=== PATIENT | male | born 1985 | race African-American/Black ===

== ENCOUNTER 2018-04-30 11:58 | Emergency (ER) | payer OTHER ==
[~2018-04-30] VITALS: Ht 188 cm; Wt 83.9 kg
--- NOTE | 2018-04-30 12:17 | NUR ---
BIBRA60, FOR SEIZURE, FOUND HIM AT THE FRONT OF [employer], -TRAUMA. PT APPEARS SLEEPY. AOX3, VSS, RR EVEN AND UNLABORED ON RA. SKIN INTACT, NO ACUTE DISTRESS NOTED. SEIZURE PRECAUTIONS IMPLEMENTED. ON MONITOR, READY FOR EVAL, WILL CONT TO MONITOR.
[2018-04-30 12:23] LABS: BASOPHILS % (AUTO) 0.7 % (0.0-2.0); EOSINOPHILS % (AUTO) 0.2 % (0.0-6.0); HEMATOCRIT 45 % (39-51); LYMPHOCYTES # (AUTO) 1.4 /CMM (0.8-4.8); LYMPHOCYTES % (AUTO) 24.5 % (20.0-44.0); MEAN CORPUSCULAR HGB CONC 34 g/dl (31.0-36.0); MEAN CORPUSCULAR VOLUME 97 fL (80-96); MONOCYTES # (AUTO) 0.6 /CMM (0.1-1.30); NEUTROPHILS # (AUTO) 3.6 /CMM (1.8-8.9); NEUTROPHILS % (AUTO) 63.6 % (43.0-81.0); PLATELET COUNT (AUTO) 138 /CMM (150-450); RED BLOOD CELL COUNT(AUTO) 4.62 MIL/uL (4.5-6.0); WHITE BLOOD COUNT (AUTO) 5.7 K/uL (4.3-11.0)
--- NOTE | 2018-04-30 12:30 | NUR ---
CALLED PHARMACY TO REQUEST IV MEDICATION
[2018-04-30 12:39] LABS: CALCIUM, SERUM 9.3 mg/dL (8.5-10.1); CREATININE 0.8 mg/dL (0.6-1.3); POTASSIUM 3.6 mmol/L (3.5-5.1)
[2018-04-30] MEDS: IV NS 0.9% 1,000 ML BAG IV ONE (12:40)
[2018-04-30] MEDS: LEVETIRACETAM (500MG) 1,000 MG in IV NS 0.9% 100 ML IV SCH (12:55)
--- NOTE | 2018-04-30 13:15 | NUR ---
UPON CHECKING ON PT, FOUND WITH ARMS AND LEGS FLAILING. SAT UP I ATTEMPTED TO CALM HIM. APPEARED CONFUSED/DISORIENTED. STOOD UP AND BEGAN TO DRAG MONITOR AND IV POLE AWAY FROM BED. PROCEEDED TO DIVE DOWN NEXT TO OTHER PT'S BED AND LAY ON THE FLOOR. IV LINE PULLED OUT, PT HAD NO VERBAL RESPONSE. STAFF ASSISTED PT BACK TO BED. CELY WATERS MADE AWARE. 2-PT RESTRAINTS PLACED WITH CMS INTACT FOR PT SAFETY. NEW IV LINE WILL BE PLACED AND WILL CONT TO MONITOR. Addendum: 05/01/18 at 1127 by CJUWONO VERBAL ORDER FOR RESTRAINTS GIVEN BY CELY WATERS
--- NOTE | 2018-04-30 14:38 | NUR ---
CHALO received a call from Neetu in ED requesting for SW to assess pt. per RN Janeth's request. CHALO and RIGOBERTO Fowler met with pt. bedside. SW is unable to assess pt. due to not being alert or oriented. RIGOBERTO Fowler tried to wake pt. up several times. According to RIGOBERTO Fowler pt. was talking with her a few minutes ago. SW to reassess pt. when he is more alert and oriented. ED CRN Radha also accompanied CHALO to see the pt.
--- NOTE | 2018-04-30 14:45 | NUR ---
CELY WATERS AT BEDSIDE. WHEN ASKED ABOUT LOCATION, PT STATES HE IS AT HOME. DIFFICULTY AROUSING. WAITING FOR ORDERS. WILL CONT TO MONITOR.
--- NOTE | 2018-04-30 15:37 | NUR ---
PT APPEARS MORE ALERT, HOWEVER, SOME ANSWERS ARE STILL INAPPROPRIATE. HE IS ABLE TO WALK TO THE BATHROOM. PA AWARE Addendum: 05/01/18 at 1124 by PHILIPP RESTRAINTS REMOVED
[2018-04-30 16:24] LABS: APPEARANCE,URINE Clear (CLEAR); BILIRUBIN,URINE SMALL (NEGATIVE); BLOOD, URINE Negative Ery/uL (NEGATIVE); COLOR,URINE Yellow (YELLOW); KETONES,URINE 40 (NEGATIVE); LEUKOCYTE ESTERASE ,URINE Negative (NEGATIVE); NITRITE, URINE Negative (NEGATIVE); PROTEIN,URINE Trace mg/dl (NEGATIVE); UGLUCOSE Negative (NEGATIVE)
[2018-04-30 16:30] LABS: BACTERIA,URINE None seen /HPF (None Seen); RBC,URINE 0-2 /HPF (0-2); SQUAMOUS EPITHELIAL CELL,UR Few /HPF (None Seen); WBC,URINE 0-2 /HPF (0-3)
--- NOTE | 2018-04-30 16:37 | NUR ---
PT ALERT AND ORIENTED, READY FOR DISCHARGE. CELY TARIQ
[2018-04-30 16:53] LABS: ACETAMINOPHEN < 2 ug/ml (10-30); ALCOHOL, BLOOD < 3 mg/dL (0-0); SALICYLATE 2.9 mg/dL (2.8-20.0)
--- NOTE | 2018-04-30 17:15 | NUR ---
IV removed. Catheter intact and site benign. Pressure and 4x4 applied to site. No bleeding noted. Patient given written and verbal discharge instructions. Patient verbalizes understanding of instructions. Patient is ambulatory with steady gait. Refuses offer of fdc placement. Patient given list of available shelters in surrounding area.
[2018-04-30 17:40] VITALS: BP 141/82
[2018-05-06] MEDS ORDERED: ATOR10TA PO (12:44)
[2018-05-06] MEDS ORDERED: METF-440 PO (12:44)
== END 2018-04-30 17:15 | disposition home or self-care (01) ==
LOC: EDBD 12:01 → ER 12:01
DX: R56.9 Unspecified convulsions (principal)
CPT/HCPCS: 36415; 70450; 80048; 80305; 80307; 80329; 81001; 85025; 93005; 96365; 99284; G0480; J1953; J7030 ×2; 81000-TC

== ENCOUNTER 2018-05-04 06:19 | Inpatient (IN) | payer OTHER ==
[~2018-05-04] VITALS: Ht 188 cm; Wt 107.0 kg
--- NOTE | 2018-05-04 06:30 | NUR ---
TO BED 3 BIB PARAMEDICS C/O POSSIBLE SEIZURE PER EMS REPORT, PT CONFUSED. PT CONFUSED, NO ACUTE DISTRESS NOTED, RESP EVEN AND UNLABORED. PLACE PT ON CARDIAC MONITORING, CONTINUOUS POX, O2@2L/NC. ER MD AT BEDSIDE TO EVAL PT WITH ORDERS RECEIVED. WILL CARRY OUT ORDERS.
[2018-05-04] MEDS ORDERED: LORAZEPAM INJ 2 MG/ML VIAL ONE ×2 (06:41→07:08)
[2018-05-04] MEDS ORDERED: VALPROATE 500 MG in IV NS 0.9% 100 ML IV STA (06:43)
--- NOTE | 2018-05-04 06:43 | NUR ---
WITNESSED PT HAVING A SEIZURE EPISODE, ER MD MADE AWARE WITH ORDERS RECEIVED.
--- NOTE | 2018-05-04 06:45 | NUR ---
PT MEDICATED BY RN PER ER MD ORDER.
[2018-05-04] MEDS ORDERED: LORAZEPAM INJ 2 MG/ML VIAL IV ONE ×2 (07:00→07:30)
[2018-05-04] MEDS ORDERED: IV NS 0.9% 1,000 ML BAG IV ONE (07:00)
--- NOTE | 2018-05-04 07:06 | NUR ---
NOTED PT HAVING ANOTHER SEIZURE. ER MD MADE AWARE WITH ORDERS RECIEVED. RN TO MEDICATE PT.
[2018-05-04 07:18] LABS: BASOPHILS % (AUTO) 0.2 % (0.0-2.0); EOSINOPHILS % (AUTO) 0.1 % (0.0-6.0); HEMATOCRIT 45 % (39-51); HEMOGLOBIN 15.1 g/dL (13.5-17.5); LYMPHOCYTES # (AUTO) 1.4 /CMM (0.8-4.8); LYMPHOCYTES % (AUTO) 12.5 % (20.0-44.0); MEAN CORPUSCULAR HGB CONC 33 g/dl (31.0-36.0); MEAN CORPUSCULAR VOLUME 97 fL (80-96); MONOCYTES # (AUTO) 1.4 /CMM (0.1-1.30); MONOCYTES % (AUTO) 12.7 % (2.0-12.0); NEUTROPHILS # (AUTO) 8.2 /CMM (1.8-8.9); NEUTROPHILS % (AUTO) 74.5 % (43.0-81.0); PLATELET COUNT (AUTO) 157 /CMM (150-450); RED BLOOD CELL COUNT(AUTO) 4.63 MIL/uL (4.5-6.0)
[2018-05-04 07:33] LABS: CALCIUM, SERUM 9.4 mg/dL (8.5-10.1); CARBON DIOXIDE 16 mmol/L (21-32); CHLORIDE 102 mmol/L (98-107); CREATININE 1.1 mg/dL (0.6-1.3); GLUCOSE 165 mg/dL (74-106); POTASSIUM 3.4 mmol/L (3.5-5.1); SODIUM SERUM 139 mmol/L (136-145); UREA NITROGEN, BLOOD 14 mg/dL (7-18); VALPROIC ACID 5 ug/mL (50-100)
[2018-05-04 07:35] LABS: ALCOHOL, BLOOD < 3 mg/dL (0-0)
--- NOTE | 2018-05-04 08:52 | NUR ---
REPORT GIVEN TO CRISTÓBAL DURON RN. AWAITING TRANSFER TO FLOOR.
--- NOTE | 2018-05-04 10:10 | NUR ---
received pt. from er.hooked up to tele-rhythm sinus rate of 96.very groggy to lethargic.arousable,then drifts off to sleep.side rails padded.initially hooked up to cont. pulse ox due to sleepiness-level96% t0 100%.o2 on at 5l via mask as pt. breathing thru mouth.pt. continually removing o2.
--- NOTE | 2018-05-04 10:11 | NUR ---
STABLE FOR TRANSFER TO FLOOR
[2018-05-04] MEDS ORDERED: HYDROCODONE/APAP 5/325MG 1 EACH TABLET PO PRN (11:30)
[2018-05-04] MEDS ORDERED: ZOLPIDEM TARTRATE 5 MG TABLET PO PRN (11:30)
[2018-05-04] MEDS ORDERED: Z GUARD REMEDY 2 OZ OINT TP PRN (11:30)
[2018-05-04] MEDS ORDERED: ACETAMINOPHEN 325 MG TABLET PO PRN (11:30)
[2018-05-04] MEDS ORDERED: MAGNESIUM HYDROXIDE 30 ML UDC PO PRN (11:30)
[2018-05-04] MEDS ORDERED: ONDANSETRON HCL/PF 4 MG/2 ML VIAL IVP PRN (11:30)
[2018-05-04] MEDS ORDERED: MAG HYDROX/AL HYDROX/SIMETH 30 ML UDC PO PRN (11:30)
[2018-05-04] MEDS ORDERED: LORA-259 PO (11:37)
[2018-05-04] MEDS ORDERED: DIVA500T2 PO (11:37)
[2018-05-04 11:41] LABS: MAGNESIUM 1.8 mg/dL (1.8-2.4); PHOSPHORUS 3.6 mg/dL (2.5-4.9)
[2018-05-04 12:00] VITALS: BP 133/94
--- NOTE | 2018-05-04 12:00 | NUR ---
resp. tx in and changed mask to 3l.
[2018-05-04] MEDS: IV NS 0.9% 1,000 ML IV PRN (12:15)
[2018-05-04] MEDS: LEVETIRACETAM (500MG) 1,000 MG in IV NS 0.9% 100 ML IV SCH ×2 (12:16→23:11)
[2018-05-04] MEDS: POTASSIUM CL. PREMIX PERIPHER. 50 ML IV SCH ×4 (13:11→16:53)
--- NOTE | 2018-05-04 14:30 | NUR ---
from time to time pt. still removing mask,so nasal cannula applied at 3l.pox good.appears comfortable.no distress.
[2018-05-04 16:00] VITALS: BP 118/72
--- NOTE | 2018-05-04 18:00 | NUR ---
kcl replacement done.
[2018-05-04] MEDS: VALPROIC ACID 250 MG/5 ML UDC PO SCH (18:19)
--- NOTE | 2018-05-04 18:30 | NUR ---
asleep till this time so street clothes just removed and skin check done.rn to endorse photo needs to ceci. rn.just up to void.
--- NOTE | 2018-05-04 19:30 | NUR ---
MELT HOUSE SUPERVISOR OPENING NOTES Received patient asleep, easily aroused, responsive to stimuli but unable to sustain alertness. Only able to respond by telling his name. With O2 inhalation via NC, saturating 98%. On tele monitor with sinus tachycardia noted. No other discomfort noted at this time. Reassessed skin, photos taken and documented. Place on ICD per hospital policy. Kept bed low, locked, padded siderails up with call light within easy. Will continue to monitor accordingly.
[2018-05-04 20:00] VITALS: BP 124/67
[2018-05-05] VITALS: BP 138/75
[2018-05-05] MEDS: LORAZEPAM INJ 2 MG/ML VIAL IV PRN ×4 (03:22→19:58)
--- NOTE | 2018-05-05 03:22 | NUR ---
DISPUTE COORDINATOR NOTES Patient noted awaken, shouted, kicking off the bed, looked frightened. Reassured patient's safety, able to calm the patient. Assessed for LOC, all answered noted with relevance. Tachycardia noted, BP 139/78, SpO2 @ 96% with O2 inhalation via NC. Offered snacks and drinks. Patient ate with good appetite. Offered urinal at bedside. Kept patient calm, environment cool. Ensured siderails padded. Administered Lorazepam as ordered. Will continue to monitor accordingly.
[2018-05-05 04:00] VITALS: BP_SYST 116; BP_SYST 136; BP_DIAS 78
[2018-05-05] MEDS: IV NS 0.9% 1,000 ML IV PRN (06:03)
[2018-05-05 06:17] LABS: BASOPHILS % (AUTO) 0.7 % (0.0-2.0); EOSINOPHILS % (AUTO) 0.5 % (0.0-6.0); HEMATOCRIT 42 % (39-51); HEMOGLOBIN 14.2 g/dL (13.5-17.5); LYMPHOCYTES # (AUTO) 1.8 /CMM (0.8-4.8); LYMPHOCYTES % (AUTO) 31.6 % (20.0-44.0); MEAN CORPUSCULAR HGB CONC 34 g/dl (31.0-36.0); MEAN CORPUSCULAR VOLUME 95 fL (80-96); MONOCYTES # (AUTO) 0.8 /CMM (0.1-1.30); MONOCYTES % (AUTO) 13.1 % (2.0-12.0); NEUTROPHILS # (AUTO) 3.2 /CMM (1.8-8.9); NEUTROPHILS % (AUTO) 54.1 % (43.0-81.0); PLATELET COUNT (AUTO) 155 /CMM (150-450); RED BLOOD CELL COUNT(AUTO) 4.43 MIL/uL (4.5-6.0); WHITE BLOOD COUNT (AUTO) 5.9 K/uL (4.3-11.0)
--- NOTE | 2018-05-05 06:27 | NUR ---
GRANT ADMINISTRATOR CLOSING NOTES Patient asleep, easily awaken. Still with O2 inhalation via NC @ 2LPM, saturating 98%. On continuous pulse ox monitor as ordered, with episodes of dropping SpO2 while asleep. With IVF running as ordered. No discomfort noted at this time. All nursing needs attended. All due meds given as ordered. Kept on bed clean, dry and comfortable, call light at bedside. Used urinal with 400cc tea colored urine noted. Endorsed to the next shift.
[2018-05-05 06:42] LABS: CALCIUM, SERUM 8.6 mg/dL (8.5-10.1); CREATININE 0.8 mg/dL (0.6-1.3); MAGNESIUM 1.8 mg/dL (1.8-2.4); PHOSPHORUS 3.2 mg/dL (2.5-4.9); POTASSIUM 3.4 mmol/L (3.5-5.1)
--- NOTE | 2018-05-05 07:15 | NUR ---
Bedside report recieved. patient seen in bed with eyes closed. arousable to touch. patient appears sleepy but is responding appropriately to questions. cont pox on, patient on 2lnc satuaration are at 94%. reviewed poc questions concerns addresseed . bed down and locked sr x2 patient verbalized understanding to call for assistance if needed.
[2018-05-05 08:00] VITALS: BP 134/75
[2018-05-05] MEDS: PANTOPRAZOLE 40 MG TABLET.DR PO SCH (09:16)
[2018-05-05] MEDS: VALPROIC ACID 250 MG/5 ML UDC PO SCH (09:16)
[2018-05-05] MEDS ORDERED: POTASSIUM CHLORIDE 20 MEQ TAB.PRT.SR PO SCH (10:00)
[2018-05-05] MEDS ORDERED: DEXTROSE 50%-WATER 50 ML DISP.SYRIN IV PRN (10:30)
[2018-05-05] MEDS: BLOOD SUGAR DIAGNOSTIC 1 EACH STRIP IN SCH ×3 (12:14→21:06)
[2018-05-05] MEDS: LEVETIRACETAM (500MG) 1,000 MG in IV NS 0.9% 100 ML IV SCH (12:22)
[2018-05-05] MEDS: INSULIN REGULAR, HUMAN 100 UNIT/ML 3 ML VIAL SQ PRN (12:22)
--- NOTE | 2018-05-05 13:30 | NUR ---
MS RN NOTES PATIENT HAD A WITNESSED SEIZURE BY ANOTHER RN. PATIENT NOTED WITH JERKING MOVEMENTS FROM ONE SIDE OF BED TO ANOTHER. PATIENT MOVED TO RIGHT SIDE OF BED AND FELL OVER THE SIDE RAILS TO FLOOR. ALL SIDE RAILS WERE UP AND PATTED. BED ALARM WAS ON. SEIZURE DURATION WAS 15 SECONDS. ATIVAN 2 MG ADMINISTERED ORDERED. PATIENT WAS ALERT, ORIENTED X2 POST SEIZURE. DENIES ANY PAIN. ABLE TO MOVE ALL EXTREMIS. PATIENT STUD UP AND GOT INTO BED. BILLIE CHUNG NOTIFIED. NO NEW ORDERS. STATES TO CONTINUE MONITORING. PATIENT MOVED TO ANOTHER ROOM NEXT TO NURSING STATIONS. WILL CONTINUE TO MONITOR CLOSELY. Addendum: 05/05/18 at 1431 by MARIA L FIGUEROA RN VS WNL BP:121/84 PULSE: 102, O2 SATURATION 95% RESPIRATION 18. BS CHECKED 104MG/DL.
--- NOTE | 2018-05-05 15:40 | NUR ---
MS RN NOTES PATIENT WAS FOUND IN BED KICKING HIS LEGS AND SWINGING HIS ARMS UNCONTROLLABLY, THIS MOVEMENTS LASTED 15 SECONDS. PATIENT WAS UNABLE TO RESPOND. AFTER PATIENT WAS ALERT, ORIENTED X3. DOES NOT RECALL THE INCIDENT. NEURO CHECK PERFORMED. PATIENTS EYE RESPONSIVE TO LIGHT. PATIENT A ABLE TO MOVE BILATERAL UPPER AND LOWER EXTREMITAS. STRENGTH EQUAL IN ALL EXTREMITAS. NEURO CHECKED PERFORMED, NORMAL RESPONSE. BILLIE CHUNG PAGED WAITING FOR RESPONSE ATIVAN ADMINISTERED ORDER. SITTER PLACED AT BEDSIDE FOR CLOSER MONITORING. WILL CONTINUE TO MONITOR.
[2018-05-05 16:00] VITALS: BP 139/82
--- NOTE | 2018-05-05 16:05 | NUR ---
MS RN NOTES CALL BACK RECEIVED FROM BILLIE ALVARADO CONTROL ROOM TECHNICIAN ORDERS TO CONTINUE TO MONITOR.
[2018-05-05] MEDS: METFORMIN 500 MG TABLET PO SCH (16:55)
[2018-05-05] MEDS: DIVALPROEX SODIUM 500 MG TABLET.DR PO SCH (16:55)
--- NOTE | 2018-05-05 19:15 | NUR ---
BEDSIDE REPORT GIVEN TO ADA FRANKLIN. PATIENT SEEN IN BED WITH EYES CLOSED. IV INFUSING AT 75 ML PER HOUR NO S/S OF INFILTRATION. BED DOWN AND LOCKED SR X3 SITTER AT THE BEDSIDE. CALL LIGHT WITHIN REACH.
--- NOTE | 2018-05-05 19:16 | NUR ---
MS RN OPENING NOTES Received patient asleep on left lateral position on bed with continuous pulse ox with SpO2 @ 95% on RA, no SOB/respiratory distress noted. With padded siderails x4 up. With 1-on-1 sitter at bedside. Kept bed low and locked, call light within easy reach. Will continue to monitor accordingly.
--- NOTE | 2018-05-05 20:00 | NUR ---
MS RN NOTES Patient noted agitated, kicking off the bed. Patient is alert after the involuntary jerking. Patient claimed he is not aware of what he had done. Patient denied discomfort at this time. Ativan 1gm administered as ordered. Patient noted calm. Offered snacks, patient eating well. Will continue to monitor accordingly.
[2018-05-05] MEDS: LEVETIRACETAM (250 MG) 250 MG TABLET PO SCH (20:48)
[2018-05-05] MEDS ORDERED: ATORVASTATIN 10 MG TABLET PO SCH (22:00)
[2018-05-06] MEDS: IV NS 0.9% 1,000 ML IV PRN (02:46)
--- NOTE | 2018-05-06 04:03 | NUR ---
MS RN NOTES IV site LAC noted dislodged, thus D/C and reinserted to R hand G#22. Able to secure line with 1 attempt, blood return noted. Resumed IVF as ordered. Patient claimed no discomfort on LAC, no redness noted. Will continue to monitor accordingly.
[2018-05-06] MEDS: LORAZEPAM INJ 2 MG/ML VIAL IV PRN (04:59)
--- NOTE | 2018-05-06 05:10 | NUR ---
MS RN NOTES Patient noted excessive movement including kicking that lasted less than a minute. Patient remained on bed at all times. Patient verbalized similar event had happened to him at [place] that brought him to the hospital. Patient responded with relevant answers. BS checked 148. Administered Lorazepam 1mg as ordered. Replaced damaged compression sleeves. Will continue to monitor accordingly.
[2018-05-06] MEDS: INSULIN REGULAR, HUMAN 100 UNIT/ML 3 ML VIAL SQ PRN ×2 (06:54→11:56)
[2018-05-06 07:05] LABS: BASOPHILS % (AUTO) 0.7 % (0.0-2.0); EOSINOPHILS % (AUTO) 0.9 % (0.0-6.0); HEMATOCRIT 43 % (39-51); HEMOGLOBIN 14.5 g/dL (13.5-17.5); LYMPHOCYTES # (AUTO) 1.7 /CMM (0.8-4.8); LYMPHOCYTES % (AUTO) 39.8 % (20.0-44.0); MEAN CORPUSCULAR HGB CONC 34 g/dl (31.0-36.0); MEAN CORPUSCULAR VOLUME 95 fL (80-96); MONOCYTES # (AUTO) 0.6 /CMM (0.1-1.30); MONOCYTES % (AUTO) 12.8 % (2.0-12.0); NEUTROPHILS % (AUTO) 45.8 % (43.0-81.0); PLATELET COUNT (AUTO) 148 /CMM (150-450); RED BLOOD CELL COUNT(AUTO) 4.48 MIL/uL (4.5-6.0); WHITE BLOOD COUNT (AUTO) 4.3 K/uL (4.3-11.0)
--- NOTE | 2018-05-06 07:10 | NUR ---
MS RN CLOSING NOTES Patient noted asleep at this time. BS 132 - 2units Insulin given as ordered. On O2 inhalation via NC @ 2LPM, saturating well, no distress noted within the shift. All due meds given as ordered. All nursing needs attended. Still with 1-on-1 sitter at bedside. Kept bed low and locked, siderails padded and up. Endorsed to the next shift.
[2018-05-06 07:22] LABS: CALCIUM, SERUM 8.7 mg/dL (8.5-10.1); CREATININE 0.7 mg/dL (0.6-1.3); MAGNESIUM 1.7 mg/dL (1.8-2.4); POTASSIUM 3.2 mmol/L (3.5-5.1)
[2018-05-06] MEDS: BLOOD SUGAR DIAGNOSTIC 1 EACH STRIP IN SCH ×2 (07:48→11:51)
[2018-05-06 08:00] VITALS: BP 138/90
--- NOTE | 2018-05-06 08:00 | NUR ---
M/S CLINICAL BIOCHEMICAL GENETICIST: INITIAL ASSESSMENT RECEIVED PT IN BED AWAKE, A/OX4. ON SEIZURE PRECAUTION. NOTED WITH DRY SCAB TO RIGHT KNEE AND RIGHT EYEBROW. ALSO NOTED WITH DRY ABRASION TO RIGHT FACE. PT REFUSED PHOTOS. SITTER REMAINS AT BEDSIDE.
--- NOTE | 2018-05-06 08:40 | NUR ---
M/S FORKLIFT PICKER: NOTES PT STARTED KICKING HIS LEGS AND SWINGING HIS ARMS UNCONTROLLABLY FOR ABOUT 10 SECONDS. 4 STAFFS AT BEDSIDE. AFTER 10 SECONDS, PT STARTED SAYING WHAT'S GOING ON. PT ALERT AND ORIENTED X4. WILL CONTINUE TO MONITOR. Addendum: 05/06/18 at 0910 by DEAN GARRIDO FORKLIFT PICKER HR REMAINS THE SAME ON THE 90'S WHEN PT STARTED KICKING AND SWINGING HIS ARMS. CONTINUOUS PULSE OX REMAINS ON.
--- NOTE | 2018-05-06 08:45 | NUR ---
M/S PRODUCT SAFETY EXPERT: NOTES PT STARTED TALKING ABOUT HIS REAL STATE BUSINESS FOR ABOUT 5 MINUTES. MONITORED CLOSELY. WILL CONTINUE TO MONITOR.
[2018-05-06] MEDS: METFORMIN 500 MG TABLET PO SCH (09:01)
[2018-05-06] MEDS: PANTOPRAZOLE 40 MG TABLET.DR PO SCH (09:01)
[2018-05-06] MEDS: DIVALPROEX SODIUM 500 MG TABLET.DR PO SCH (09:01)
--- NOTE | 2018-05-06 09:05 | NUR ---
M/S OPTICAL TECHNICIAN: NOTES AM MEDS GIVEN. WILL CONTINUE TO MONITOR.
--- NOTE | 2018-05-06 09:55 | NUR ---
M/S HIDE AND SKIN FLESHING MACHINE OPERATOR: SOCIAL SERVICE CONSULT CHRISTINE ([email or web address]) AT BEDSIDE AT THIS TIME.
[2018-05-06] MEDS: Magnesium 1GM/D5W 100ML PREMIX 100 ML IV SCH ×2 (09:58→11:01)
[2018-05-06] MEDS ORDERED: POTASSIUM CHLORIDE 20 MEQ TAB.PRT.SR PO SCH (10:00)
--- NOTE | 2018-05-06 10:15 | NUR ---
M/S MAIL HANDLER: NOTES CHRISTINE (S.W.) HANDED RESOURCES. PT REFUSING LONG TERM WHEN OFFERED. WILL CONTINUE TO MONITOR.
[2018-05-06] MEDS: LEVETIRACETAM (250 MG) 250 MG TABLET PO SCH (11:02)
--- NOTE | 2018-05-06 11:50 | NUR ---
Social service consult requested by NANCY Torres for homelessness. Pt. is a 32 year old male who was admitted to [facility] for seizures. SW met with pt. bedside. SW is familiar with pt. from a previous ED visit. Pt. is alert and oriented x 4. Pt. has a sitter bedside due to pt. acting erratically last night and doing somersaults in bed, flailing his hands etc. Pt. was calm during SW's visit. Pt. states he is homeless for a month now as he is trying to get an apartment with his grandmother who is currently residing in [place]. Pt receives $800 in Disability per month. Pt. is denying any drug or alcohol use. SW offered [facility], however pt. declined. Pt. 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 Independent Living placement, which pt. declined. SW did give pt. the following resources for future use: [facility] homeless directory, Homeless [place] [facility]; [facility] Address: [address] [address] Our primary emergency services are available free of charge to all in need. We provide three hot meals daily, overnight [facility], clean clothing, showers and temporary baggage storage. only. NO BED VOUCHERS on Sundays. Bed Capacity: 183 Men Only must be ambulatory and have an ID check-in time: 4:30pm [facility] [address] [place] [address] [phone] Men Only Sunday--Sunday 90 day [facility] Must call between 10:00am and 11:00am to request if any beds are available. Intakes are held at 2:00pm. Individual must be at [facility] no later than 2:00pm. [facility] Address: [address] [place] [address] Check-in time: 12:00pm1:30pm for women; 1:30pm3:00pm for men From 6:30pm-7:00pm, individuals can line up in front of the building and if they have any beds available, they will offer it to the people in line. [facility] provides comprehensive care for men, women, and children. It is one of the only organizations in [place] that offers help for single men, single women, single mothers with children, single fathers with children, two-parent families, and even families with teenaged children experiencing homelessness. [facility] [address] [facility]. [place] [address] Not a [place] [facility], do not send patients there for shelters. Homeless resources. Appointment is needed. [phone] Homeless mentally ill people may be seen at [facility] on a walk-in basis. [facility] [place] (Behavioral Health) [address] [facility], 2nd floor Need appointment [place] [address] Main Number: [facility] ([facility]): Contact [facility] [address] [facility] [place] [address] Walk-in for psychiatric consultation HOURS: Sun-Sun 8am--7pm Saturdays 9am--5:30pm [facility] (Behavioral Health) [facility] Walk-in during certain hours [place] [address] Operation Hours: MON - FRI 8:00 a.m. - 5:00 p.m. Walk In Hours: MON - SUN 8:00 a.m. - 5:00 p.m. [facility] Clinics for Homeless Patients [facility] [address] [facility], Vaccines and infectious disease resource [address] [place]. [place] Hours: M, T, Th, F 8:30AM-4:30PM Walk-ins allowed Provide medical screening and pharmacy [facility] [address] [facility] [address] [place] [address] Vaccines and infectious diseases Hours M-F 8AM-3:30PM Walk-ins allowed Provide medical screening and pharmacy [facility] [address] [place] [address] Hours 8AM-4:30PM Walk-ins allowed Provide medical screening and pharmacy No other social service needs are requested at this time. SW is available, if needed. Pt. declined when offered a TAP card.
--- NOTE | 2018-05-06 12:00 | NUR ---
M/S SUPERVISOR HOUSECLEANER: NOTES PT BRUSHING HIS TEETH, THEN LUNCH SERVED. PT FOR D'C HOME TODAY, PT AWARE. AWAITING FOR MD ORDER.
[2018-05-06] MEDS ORDERED: METF-440 PO (12:44)
[2018-05-06] MEDS ORDERED: ATOR10TA PO (12:44)
--- NOTE | 2018-05-06 13:00 | NUR ---
M/S BURNER HAND: NOTES PT SIGNED THE HOMELESS WAIVER FORM. ALL RESOURCES PROVIDED TO PT EARLIER BY FINANCIAL ANALYSIS MANAGER.
--- NOTE | 2018-05-06 13:20 | NUR ---
M/S ANIMAL RIDE ATTENDANT: NOTES DISCHARGE INSTRUCTIONS WITH PRESCRIPTIONS GIVEN TO PT AND ALSO MED TEACHING PROVIDED TO PT. PT VERBALIZED UNDERSTANDING. H/L REMOVED WITH TIP INTACT.
--- NOTE | 2018-05-06 13:25 | NUR ---
m/s production troubleshooter: notes pt was in the bathroom from 1325pm-1350pm.
--- NOTE | 2018-05-06 13:50 | NUR ---
M/S BUSINESS OFFICE ASSOCIATE: NOTES GRANDMOTHER HERE TO DIRECTOR OF MANUFACTURING OPERATIONS THE PATIENT.
--- NOTE | 2018-05-06 14:00 | NUR ---
m/s manager of revenue: notes ramsey ([email or web address]) at bedside and talking to pt's grandma at this time.
--- NOTE | 2018-05-06 14:30 | NUR ---
m/s continuous miner operator helper: notes social service director left, pt started washing himself at this time. grandma at bedside.
--- NOTE | 2018-05-06 14:53 | NUR ---
CHALO met with pt's grandmother [place] bedside. Per grandmother she is trying to get pt. 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 . Pt's family is in [place] and per grandmother, pt's father will pay for an apartment for him, if he returns to [place]. Pt. will be leaving with his grandmother from [facility]. Homeless patient Waiver form was signed by the pt. and placed in pt's chart.
--- NOTE | 2018-05-06 15:35 | NUR ---
m/s cert occupational therapy asst: notes prior to discharge home, pt repeatedly wash himself back and forth in the sink and cleansed his shoe. pt discharge home in stable condition accompanied by grandmother via private car with all belongings and d'c papers.
--- NOTE | 2018-05-06 15:41 | NUR ---
above charting corrected: prior to discharge home, pt repeatedly wash himself back and forth by the sink and cleansed his shoe. pt discharge home in stable condition accompanied by grandmother via private car with all belongings and d'c papers with prescriptions.
== END 2018-05-06 15:40 | disposition home or self-care (01) | DRG 101 ==
LOC: ER 07:04 → TELE 09:14 → MED 05-05 08:49
PROVIDERS: ADMIT Hospitalist; ATTEND Hospitalist
DX: G40.909 Epilepsy, unspecified, not intractable, without status epilepticus (principal); E11.65 Type 2 diabetes mellitus with hyperglycemia; E66.9 Obesity, unspecified; E78.5 Hyperlipidemia, unspecified; E87.6 Hypokalemia; E83.42 Hypomagnesemia; Z68.30 Body mass index [BMI] 30.0-30.9, adult; Z91.14 Patient's other noncompliance with medication regimen
CPT/HCPCS: 36415; 70450-TC; 80048-TC; 80061-TC; 80164-TC; 82962-TC; 83735-TC; 84100-TC; 85025-TC; 87081-TC; 94760-TC; 94799-TC; G0378; G0480; J1815; J1953; J2060; J3475; J3480; J3490; J7030